=== PATIENT | male | born 1965 | race Caucasian/White ===

== ENCOUNTER 2018-02-01 11:39 | Emergency (ER) | payer OTHER ==
[~2018-02-01] VITALS: Ht 165.1 cm; Wt 74.8 kg
[2018-02-01 11:46] VITALS: BP 139/95
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
[2018-02-01] MEDS ORDERED: NACL 0.9% 2,000 ML IV ONE (12:20)
[2018-02-01] MEDS ORDERED: LORazepam 2 MG/ML VIAL IVP ONE (12:20)
[2018-02-01 14:24] LABS: MEAN CORPUSCULAR HEMOGLOBIN 31 pg (27-31); MEAN CORPUSCULAR HGB CONC 33 g/dL (33-37); MEAN CORPUSCULAR VOLUME 94 fL (80-94); PLATELET COUNT (AUTO) 178 K/uL (140-450); RED BLOOD CELL COUNT(AUTO) 4.16 MIL/uL (4.20-6.10); RED CELL DISTRIBUTION WIDTH 13.3 % (11.6-13.7); WHITE BLOOD COUNT (AUTO) 16.6 K/uL (4.8-10.8)
--- NOTE | 2018-02-01 14:31 | NUR ---
URINAL OFFER TO PT,PT VOIDED 300 MLS YELLOW CLEAR URINE
[2018-02-01 14:37] LABS: PROTHROMBIN TIME 12.4 secs (10.8-13.4)
[2018-02-01 14:43] LABS: EOSINOPHILS % (MANUAL) 4 % (0-4); LYMPHOCYTES % (MANUAL) 15 % (20-46); MONOCYTES % (MANUAL) 5 % (5-12)
[2018-02-01 15:10] LABS: ALBUMIN 3.1 g/dL (3.4-5.0); ANION GAP 15.9 (8-16); ASPARTATE AMINOTRANSFERASE 45 U/L (15-37); CARBON DIOXIDE 24.2 mmol/L (21-32); CHLORIDE 105 mmol/L (98-107); CREATININE 0.9 mg/dL (0.7-1.3); GFR ARICAN-AMERICAN 114 mL/min (>90); GLUCOSE 91 mg/dL (74-106); POTASSIUM 4.1 mmol/L (3.5-5.1); SODIUM SERUM 141 mmol/L (136-145); TOTAL BILIRUBIN 0.6 mg/dL (0.0-1.0); UREA NITROGEN, BLOOD 12 mg/dL (7-18)
[2018-02-01 15:14] LABS: ACETAMINOPHEN < 0.5 ug/ml (10-30); SALICYLATE < 2.8 mg/dL (2.8-20.0)
[2018-02-01] MEDS ORDERED: NACL 0.9% 1,000 ML IV ONE (15:25)
[2018-02-01 15:26] LABS: BARBITURATE, URINE NEG. ng/ml (NEG <=200); BENZODIAZEPINE, URINE NEG. ng/mL (NEG <=200); CANNABINOID, URINE NEG. ng/mL (NEG <=50); COCAINE, URINE NEG. ng/mL (NEG <=300); OPIATE, URINE NEG. ng/mL (NEG <=2000); PHENCYCLIDINE SCREEN,URINE NEG. ng/mL (NEG <=25)
--- NOTE | 2018-02-01 16:39 | NUR ---
PT RESTING QUIETLY IN BED, DENIES ANY PLAN TO HURT HIMSELF OR OTHER PEOPLE. REPORT GIVEN TO MORGAN GERARDO.
--- NOTE | 2018-02-01 16:40 | NUR ---
RECEIVED REPORT FROM FARRAH GERARDO. TRANSFER OF CARE AT THIS TIME.
--- NOTE | 2018-02-01 17:00 | NUR ---
PATIENT RESTING AT THIS TIME. NO SIGNS OF DISTRESS.
--- NOTE | 2018-02-01 17:30 | NUR ---
PATIENT EXPRESSES WISH TO GO HOME, PT EDUCATED PT IS ON 5150 AND CANNOT HOME.
--- NOTE | 2018-02-01 18:00 | NUR ---
PATIENT RESTING AT THIS TIME. NO SIGNS OF DISTRESS.
--- NOTE | 2018-02-01 18:27 | NUR ---
DR. HASSAN AT BEDSIDE EVALUATING PATIENT.
--- NOTE | 2018-02-01 19:00 | NUR ---
Pt report given to RAISA GERARDO. Transfer of care at this time.
--- NOTE | 2018-02-01 19:25 | NUR ---
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
--- NOTE | 2018-02-01 19:52 | NUR ---
I CALLED PT'S STEVE AT FOR ETA. N/A-I LEFT V-MAIL
--- NOTE | 2018-02-01 20:04 | NUR ---
IV removed, catheter intact and site benign. Applied folded 4x4 gauze and tape to stop bleeding.
--- NOTE | 2018-02-01 20:05 | NUR ---
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
[2018-02-01 20:08] VITALS: BP 134/80
--- NOTE | 2018-02-01 20:08 | NUR ---
Patient discharged with v/s stable. Written and verbal after care instructions given and explained. Patient verbalized understanding. Ambulatory with steady gait. All questions addressed prior to discharge with colette. Advised to follow up with PMD.
== END 2018-02-01 20:08 | disposition home or self-care (01) ==
LOC: MED 11:39 → EDBD 11:39 → MED 20:08
DX: F10.10 Alcohol abuse, uncomplicated (principal)
CPT/HCPCS: 36415; 80053; 80305; 85025; 85610; 96361; 96374; 99285; G0480; G0482; J2060

== ENCOUNTER 2019-06-07 11:00 | Emergency (ER) | payer OTHER ==
[~2019-06-07] VITALS: Ht 170.2 cm; Wt 74.8 kg
[2019-06-07 11:00] VITALS: BP 148/91
--- NOTE | 2019-06-07 11:00 | NUR ---
PT DERIKA BLS TO ER BED 09
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
--- NOTE | 2019-06-07 11:10 | NUR ---
DR. MEDELLIN AT BEDSIDE EVALUATING PT
[2019-06-07] MEDS ORDERED: NACL 0.9% 1,000 ML IV ONE ×2 (11:25→15:55)
--- NOTE | 2019-06-07 11:25 | NUR ---
pt son at bedside
[2019-06-07] MEDS ORDERED: LORazepam 2 MG/ML VIAL IVP ONE (11:30)
[2019-06-07 11:38] LABS: BASOPHILS # (AUTO) 0.1 K/uL (0.00-0.22); EOSINOPHILS # (AUTO) 0.2 K/uL (0-0.4); HEMATOCRIT 37.1 % (36-52); HEMOGLOBIN 12.3 g/dL (12.0-18.0); LYMPHOCYTES # (AUTO) 2.4 K/uL (2.0-11.5); MEAN CORPUSCULAR HEMOGLOBIN 29 pg (27-31); MEAN CORPUSCULAR HGB CONC 33 g/dL (33-37); MEAN CORPUSCULAR VOLUME 88.5 fL (80-94); MONOCYTES # (AUTO) 0.9 K/uL (0.8-1.0); MONOCYTES % (AUTO) 8.6 % (1.7-9.3); NEUTROPHILS # (AUTO) 6.4 K/uL (1.8-7.7); NEUTROPHILS % (AUTO) 64.4 % (42.2-75.2); PLATELET COUNT (AUTO) 135 K/uL (140-450); RED CELL DISTRIBUTION WIDTH 15.4 % (11.6-13.7); WHITE BLOOD COUNT (AUTO) 9.9 K/uL (4.8-10.8)
--- NOTE | 2019-06-07 11:40 | NUR ---
pt son left
[2019-06-07 11:58] LABS: ALBUMIN 3.3 g/dL (3.4-5.0); ANION GAP 15.9 (8-16); CARBON DIOXIDE 25.8 mmol/L (21-32); CREATININE 1.3 mg/dL (0.7-1.3); POTASSIUM 3.7 mmol/L (3.5-5.1)
--- NOTE | 2019-06-07 12:06 | NUR ---
pt asleep in bed at this time
--- NOTE | 2019-06-07 13:46 | NUR ---
arousable with minimal effort---oriented to name place time somnolent.
--- NOTE | 2019-06-07 14:30 | NUR ---
PT ASLEEP BUT AROUSABLE, PROVIDED PT WITH A CUP OF WATER PER REQUEST
--- NOTE | 2019-06-07 15:56 | NUR ---
OFFERED PT A LUNCH TRAY BUT HE DECLINED. BROUGHT HIM SOME APPLE JUICE WITH CRACKERS & JELLO TO THE BEDSIDE AND HE SAID HE WOULD TRY TO EAT THEM.
--- NOTE | 2019-06-07 17:10 | NUR ---
PT IS AROUSABLE TO VOICE, STATES "I FEEL GOOD NOW, JUST TIRED".
--- NOTE | 2019-06-07 17:40 | NUR ---
PT AWAKE AT THIS TIME, WILL CALL FAMILY TO PICK HIM UP.
[2019-06-07 17:51] VITALS: BP 141/100
--- NOTE | 2019-06-07 17:51 | NUR ---
PT DISCHARGED W AMBULATORY & STEADY GAIT. PT ALERT AND ANSWERING QUESTIONS APPROPRIATELY. VSS. Written and verbal after care instructions given and explained. Patient verbalized understanding. All questions addressed prior to discharge. Advised to follow up with PMD.
== END 2019-06-07 17:51 | disposition home or self-care (01) ==
LOC: MED 11:00
DX: E86.0 Dehydration (principal); F10.929 Alcohol use, unspecified with intoxication, unspecified; F17.200 Nicotine dependence, unspecified, uncomplicated; I10 Essential (primary) hypertension; E78.00 Pure hypercholesterolemia, unspecified
CPT/HCPCS: 36415; 80053; 85025; 96361; 96374; 99283; G0482; J2060; J7030

== ENCOUNTER 2020-06-27 10:05 | Emergency (ER) | payer OTHER ==
[~2020-06-27] VITALS: Ht 170.2 cm; Wt 73.5 kg
[2020-06-27 10:13] VITALS: BP 138/74
--- NOTE | 2020-06-27 10:21 | NUR ---
Pt juana bls from home c/o ETOH intoxication. Pt states he wants and IV and fluids because he drank 1 bottle of tequila yesterday. +covid x 2 wks. DENIES N/V/D; SKIN IS FLUSHED/WARM/DRY; AAOX3; PT DENIES ANY FEVER, CP, SOB, OR COUGH AT THIS TIME; PATIENT STATES PAIN OF 0/10 AT THIS TIME; VSS; PATIENT POSITIONED FOR COMFORT; HOB ELEVATED; BEDRAILS UP X2; BED DOWN. ER MD MADE AWARE OF PT STATUS.
--- NOTE | 2020-06-27 10:32 | NUR ---
DR. CLEMENT IS EVALUATING PT AT BEDSIDE.
--- NOTE | 2020-06-27 10:37 | NUR ---
DR. CLEMENT IS COMMUNICATING TO PT'S SON VIA PHONE.
--- NOTE | 2020-06-27 10:49 | NUR ---
XRAY IS AT BEDSIDE.
[2020-06-27 11:12] VITALS: BP 127/68
--- NOTE | 2020-06-27 11:13 | NUR ---
Patient discharged with v/s stable. Written and verbal after care instructions given and explained. Patient verbalized understanding. Ambulatory with steady gait. All questions addressed prior to discharge. Advised to follow up with PMD.
== END 2020-06-27 11:13 | disposition home or self-care (01) ==
LOC: MED 10:05
DX: F10.129 Alcohol abuse with intoxication, unspecified (principal); U07.1 COVID-19; E86.0 Dehydration; I10 Essential (primary) hypertension; E78.00 Pure hypercholesterolemia, unspecified; Y90.9 Presence of alcohol in blood, level not specified
CPT/HCPCS: 71045; 99283; Q0092